=== PATIENT | male | born 1955 ===

== ENCOUNTER 2018-09-12 12:58 | Emergency (ER) | payer BC, OTHER ==
--- NOTE | 2018-09-12 15:15 | ER ---
Nurse's Notes [facility] Name: Joaquim Dugan Age: 63 yrs Sex: Male : 1955 Arrival Date: 09/12/2018 Time: 13:01 Bed 9 Private MD: Diagnosis: Viral Illnes;Essential (primary) hypertension Presentation: 09/12 13:19 Presenting complaint: Nonproductive cough and diarrhea x 4 days. Transition of care: hb patient was not received from another setting of care. Onset of symptoms was September 09, 2018. Risk Assessment: Do you want to hurt yourself or someone else? Patient reports no desire to harm self or others. Care prior to arrival: None. 13:19 Method Of Arrival: Ambulatory hb 13:19 Acuity: KAJAL 4 hb 13:30 Initial Sepsis Screen: Does the patient meet any 2 criteria? No. Patient's initial iw sepsis screen is negative. Does the patient have a suspected source of infection?. Triage Assessment: 15:15 General: Appears in no apparent distress. Behavior is calm. iw Historical: - Allergies: 13:21 No Known Allergies; hb - Home Meds: 13:21 None [Active]; hb - PMHx: 13:21 None; hb - PSHx: 13:21 stomach; hb - Immunization history:: Adult Immunizations up to date. - Social history:: Smoking status: Patient/guardian denies using tobacco. - Ebola Screening: : No symptoms or risks identified at this time. - Family history:: not pertinent. - Hospitalizations: : No recent hospitalization is reported. Screenin:15 Abuse screen: Denies threats or abuse. Denies injuries from another. Nutritional iw screening: No deficits noted. Tuberculosis screening: No symptoms or risk factors identified. Fall Risk None identified. Assessment: 13:30 General: Appears in no apparent distress. comfortable, Behavior is calm, cooperative. iw Pain: Denies pain. Neuro: Level of Consciousness is awake, alert, obeys commands. Cardiovascular: Patient's skin is warm and dry. Respiratory: Respiratory effort is even, unlabored. Derm: Skin is intact, is healthy with good turgor. Musculoskeletal: Range of motion: intact in all extremities. Vital Signs: 13:20 BP 196 / 90; Pulse 86; Resp 16; Temp 100.2(TE); Pulse Ox 100% on R/A; Pain 0/10; hb 15:02 BP 167 / 84; Pulse 74; Resp 16; Pulse Ox 98% on R/A; Pain 0/10; iw ED Course: 13:01 Patient arrived in ED. rg4 13:15 Patient has correct armband on for positive identification. iw 13:20 Triage completed. hb 13:20 Arm band placed on left wrist. hb 13:23 Flu Sent. hb 14:29 [facility] F[facility]. kav 14:29 Tan Song MD is Attending Physician. kav 14:54 Tereza Robbins, RN is Primary Nurse. iw 15:19 No provider procedures requiring assistance completed. Patient did not have IV access iw during this emergency room visit. Administered Medications: No medications were administered Outcome: 15:14 Discharge ordered by . kav 15:19 Discharged to home ambulatory, with family. iw 15:19 Condition: good 15:19 Discharge instructions given to patient, family, Instructed on discharge instructions, follow up and referral plans. medication usage, Demonstrated understanding of instructions, follow-up care, medications, Prescriptions given X 1. 15:20 Patient left the ED. iw Signatures: Natalie Fajardo FNP FNP kav Williams, Irene, RN RN Della Young, DORA RN Lenora Campbell rg4
--- NOTE | 2018-09-12 15:16 | EDPHYS ---
Physician Documentation [facility] Name: Joaquim Dugan Age: 63 yrs Sex: Male : 1955 Arrival Date: 09/12/2018 Time: 13:01 Bed 9 Private MD: ED Physician Tan Song HPI: 09/12 14:30 This 63 yrs old Unknown Male presents to ER via Ambulatory with complaints of Flu kav Symptoms. 14:49 Flu-like symptoms. Onset: The symptoms/episode began/occurred acutely, 1 hour(s) ago. kav Severity of symptoms: At their worst the symptoms were moderate yesterday. The patient has not experienced similar symptoms in the past. The patient has not recently seen a physician. Exposure to sick contact with Influenza. Historical: - Allergies: 13:21 No Known Allergies; hb - Home Meds: 13:21 None [Active]; hb - PMHx: 13:21 None; hb - PSHx: 13:21 stomach; hb - Immunization history:: Adult Immunizations up to date. - Social history:: Smoking status: Patient/guardian denies using tobacco. - Ebola Screening: : No symptoms or risks identified at this time. - Family history:: not pertinent. - Hospitalizations: : No recent hospitalization is reported. ROS: 14:50 Constitutional: Negative for fever, chills, and weight loss, Eyes: Negative for injury, kav pain, redness, and discharge, ENT: Negative for injury, pain, and discharge, Neck: Negative for injury, pain, and swelling, Cardiovascular: Negative for chest pain, palpitations, and edema, Abdomen/GI: Negative for abdominal pain, nausea, vomiting, diarrhea, and constipation, Back: Negative for injury and pain, : Negative for injury, bleeding, discharge, and swelling, MS/Extremity: Negative for injury and deformity, Skin: Negative for injury, rash, and discoloration, Neuro: Negative for headache, weakness, numbness, tingling, and seizure, Psych: Negative for depression, anxiety, suicide ideation, homicidal ideation, and hallucinations, Allergy/Immunology: Negative for hives, rash, and allergies, Endocrine: Negative for neck swelling, polydipsia, polyuria, polyphagia, and marked weight changes, Hematologic/Lymphatic: Negative for swollen nodes, abnormal bleeding, and unusual bruising. 14:50 Respiratory: Positive for cough, with no reported sputum. Exam: 14:50 Constitutional: This is a well developed, well nourished patient who is awake, alert, kav and in no acute distress. Head/Face: Normocephalic, atraumatic. Eyes: Pupils equal round and reactive to light, extra-ocular motions intact. Lids and lashes normal. Conjunctiva and sclera are non-icteric and not injected. Cornea within normal limits. Periorbital areas with no swelling, redness, or edema. ENT: Nares patent. No nasal discharge, no septal abnormalities noted. Tympanic membranes are normal and external auditory canals are clear. Oropharynx with no redness, swelling, or masses, exudates, or evidence of obstruction, uvula midline. Mucous membranes moist. Neck: Trachea midline, no thyromegaly or masses palpated, and no cervical lymphadenopathy. Supple, full range of motion without nuchal rigidity, or vertebral point tenderness. No Meningismus. Chest/axilla: Normal chest wall appearance and motion. Nontender with no deformity. No lesions are appreciated. Cardiovascular: Regular rate and rhythm with a normal S1 and S2. No gallops, murmurs, or rubs. Normal PMI, no JVD. No pulse deficits. Abdomen/GI: Soft, non-tender, with normal bowel sounds. No distension or tympany. No guarding or rebound. No evidence of tenderness throughout. Back: No spinal tenderness. No costovertebral tenderness. Full range of motion. Skin: Warm, dry with normal turgor. Normal color with no rashes, no lesions, and no evidence of cellulitis. MS/ Extremity: Pulses equal, no cyanosis. Neurovascular intact. Full, normal range of motion. Neuro: Awake and alert, GCS 15, oriented to person, place, time, and situation. Cranial nerves II-XII grossly intact. Motor strength 5/5 in all extremities. Sensory grossly intact. Cerebellar exam normal. Normal gait. Psych: Awake, alert, with orientation to person, place and time. Behavior, mood, and affect are within normal limits. 14:50 Respiratory: the patient does not display signs of respiratory distress, Respirations: Breath sounds: are clear throughout, no acute changes. Vital Signs: 13:20 BP 196 / 90; Pulse 86; Resp 16; Temp 100.2(TE); Pulse Ox 100% on R/A; Pain 0/10; hb 15:02 BP 167 / 84; Pulse 74; Resp 16; Pulse Ox 98% on R/A; Pain 0/10; iw MDM: 14:30 Medical screening is not applicable. kav 14:50 Differential Diagnosis flu. Data reviewed: vital signs, nurses notes. Counseling: I had kav a detailed discussion with the patient and/or guardian regarding: the historical points, exam findings, and any diagnostic results supporting the discharge/admit diagnosis, the presence of at least one elevated blood pressure reading (>120/80) during this emergency department visit, lab results, the need for outpatient follow up, a family practitioner. 09/12 13:19 Order name: Flu; Complete Time: 14:30 hb 09/12 14:30 Interpretation: Within normal limits. kav 09/12 14:53 Order name: VS Recheck; Complete Time: 15:05 kav Administered Medications: No medications were administered Disposition: 16:20 Co-signature as Attending Physician, Tan Song MD I agree with the assessment and kdr plan of care. Disposition: 09/12/18 15:14 Discharged to Home. Impression: Viral Illnes, Essential (primary) hypertension. - Condition is Stable. - Discharge Instructions: Hypertension, [id number], How to Take Your Blood Pressure, [id number], Viral Respiratory Infection, [id number], DASH Eating Plan, Managing Your Hypertension. - Prescriptions for Tamiflu 75 mg Oral Capsule - take 1 tablet by ORAL route every 12 hours for 5 days; 10 tablet. - Medication Reconciliation Form, Thank You Letter, Antibiotic Education, Prescription Opioid Use, Work release form form. - Follow up: Private Physician; When: 5 - 6 days; Reason: Recheck today's complaints, Continuance of care, Re-evaluation by your physician, Hypertension. - Problem is new. - Symptoms have improved. Signatures: Dispatcher [employer] EDMS Tan Song MD MD kdr Vern, Katherine, DIGITAL ADVISOR DIGITAL ADVISOR Tereza Collins, DORA RN iw Della Young, DORA RN hb Corrections: (The following items were deleted from the chart) 15:20 15:14 09/12/2018 15:14 Discharged to Home. Impression: Viral Illnes; Essential iw (primary) hypertension. Condition is Stable. Discharge Instructions: Hypertension, [id number], How to Take Your Blood Pressure, [id number], Viral Respiratory Infection, Rcwq-[id number]-Eilm, DASH Eating Plan, Managing Your Hypertension. Prescriptions for Tamiflu 75 mg Oral Capsule - take 1 tablet by ORAL route every 12 hours for 5 days; 10 tablet. and Forms are Medication Reconciliation Form, Thank You Letter, Antibiotic Education, Prescription Opioid Use. Follow up: Private Physician; When: 5 - 6 days; Reason: Recheck today's complaints, Continuance of care, Re-evaluation by your physician, Hypertension. Problem is new. Symptoms have improved. kav
== END 2018-09-12 15:20 | disposition home or self-care (01) ==
LOC: ER 12:58
DX: B34.9 Viral infection, unspecified (principal); I10 Essential (primary) hypertension
CPT/HCPCS: 87804; 99283